=== PATIENT | female | born 1975 | race African-American/Black ===

== ENCOUNTER → 2020-03-14 | Outpatient (CLI) | payer BC, OTHER | LOC: MRI 03-12 10:13 | PROVIDERS: ATTEND Family Medicine | DX: S83.241A Other tear of medial meniscus, current injury, right knee, initial encounter (principal); R60.0 Localized edema; M25.461 Effusion, right knee; X58.XXXA Exposure to other specified factors, initial encounter; Y93.89 Activity, other specified; Y92.89 Other specified places as the place of occurrence of the external cause; Y99.8 Other external cause status ==

== ENCOUNTER → 2020-08-10 | Outpatient (CLI) | payer BC, OTHER | LOC: MRI 10:01 | PROVIDERS: ATTEND Family Medicine | DX: M51.17 Intervertebral disc disorders with radiculopathy, lumbosacral region (principal); M47.26 Other spondylosis with radiculopathy, lumbar region ==

== ENCOUNTER → 2020-09-17 | Outpatient (CLI) | payer BC, OTHER ==
[~2020-09-17] VITALS: Ht 180.3 cm; Wt 68.0 kg
[~2020-09-17] MED LIST: BREO ELLIPTA 11 EACH INH; CYMBALTA30 MG PO; FLEXERIL PO; HYDROCODON-ACE1 EAC8 PO; IBUPROFEN 800800 M1 PO; VENTOLIN HFA 1818 GM INH
[2020-09-17 12:45] VITALS: BP 127/76
--- NOTE | 2020-09-17 12:46 | NUR ---
Pain Clinic Assessment: 1. History of Osteoarthritis: SACRUM History of Rheumatoid Arthritis: Not Applicable 2. Height: 5 ft. 11 in. 180.3 cm. Weight: 150.0 lb. oz. 68.040 kg. Patient's BMI: 20.9 3. Vital Signs: BP: 127/76 Pulse: 79 Resp: 16 Temp: 02 Sat: 100 ECG Mon: 4. Pain Intensity: 9 5. Fall Risk: Dizziness: Needs help standing or walking: Fallen in the last 3 months: Fall risk comments: 6. Patient on Blood Thinner: None 7. History of Hypertension: N 8. Opioid Therapy greater than 6 weeks: Y Opiate Contract Signed: 9. Risk Assessment Tool Provided: low-1 10. Functional Assessment Tool: 11. Recreational Drug Use: Never Drug Type: Tobacco Use: Never Smoker Tobacco Type: Amount or Packs/day: How Many Years: Alcohol Use: No Frequency: Quant:
== END | disposition home or self-care (01) ==
LOC: PAIN 09-13 06:55
PROVIDERS: ATTEND Anesthesiology Pain Medicine
DX: M51.26 Other intervertebral disc displacement, lumbar region (principal); G89.29 Other chronic pain; J45.909 Unspecified asthma, uncomplicated; M19.90 Unspecified osteoarthritis, unspecified site; G47.30 Sleep apnea, unspecified; Z98.890 Other specified postprocedural states; Z79.899 Other long term (current) drug therapy; Z88.8 Allergy status to other drugs, medicaments and biological substances

== ENCOUNTER → 2020-10-10 | Outpatient (CLI) | payer BC, OTHER ==
[~2020-10-10] VITALS: Ht 180.3 cm; Wt 72.8 kg
[~2020-10-10] MED LIST changes: +LYRICA 50 MG50 MG PO; +MEDROLDOSEPACK PO
[2020-10-10 08:58] VITALS: BP 117/75
--- NOTE | 2020-10-10 09:06 | NUR ---
Pain Clinic Assessment: 1. History of Osteoarthritis: SACRUM History of Rheumatoid Arthritis: Not Applicable 2. Height: 5 ft. 11 in. 180.3 cm. Weight: 160.6 lb. oz. 72.848 kg. Patient's BMI: 22.4 3. Vital Signs: BP: 117/75 Pulse: 78 Resp: 16 Temp: 02 Sat: 100 ECG Mon: 4. Pain Intensity: 9 5. Fall Risk: Dizziness: N Needs help standing or walking: N Fallen in the last 3 months: N Fall risk comments: 6. Patient on Blood Thinner: None 7. History of Hypertension: N 8. Opioid Therapy greater than 6 weeks: Y Opiate Contract Signed: 9. Risk Assessment Tool Provided: low-1 10. Functional Assessment Tool: 11. Recreational Drug Use: Never Drug Type: Tobacco Use: Never Smoker Tobacco Type: Amount or Packs/day: How Many Years: Alcohol Use: No Frequency: Quant:
== END ==
LOC: PAIN 06:49
PROVIDERS: ATTEND Anesthesiology Pain Medicine
DX: M51.37 Other intervertebral disc degeneration, lumbosacral region (principal); J45.909 Unspecified asthma, uncomplicated; G47.30 Sleep apnea, unspecified; G89.4 Chronic pain syndrome

== ENCOUNTER → 2020-11-16 | Outpatient (CLI) | payer BC, OTHER ==
[~2020-11-16] VITALS: Ht 180.3 cm; Wt 77.2 kg
[~2020-11-16] MED LIST changes: +ARMODAFINIL250 MG PO; +BACLOFEN20 MG PO; +PERCOCET 5-3251 EACH PO; +PROMETHAZINE-D473 M1 PO
[2020-11-16 08:05] VITALS: BP 114/73
--- NOTE | 2020-11-16 08:22 | NUR ---
Pain Clinic Assessment: 1. History of Osteoarthritis: SACRUM History of Rheumatoid Arthritis: Not Applicable 2. Height: 5 ft. 11 in. 180.3 cm. Weight: 170.2 lb. oz. 77.202 kg. Patient's BMI: 23.7 3. Vital Signs: BP: 114/73 Pulse: 99 Resp: 14 Temp: 02 Sat: 100 ECG Mon: 4. Pain Intensity: 9 5. Fall Risk: Dizziness: N Needs help standing or walking: N Fallen in the last 3 months: N Fall risk comments: 6. Patient on Blood Thinner: None 7. History of Hypertension: N 8. Opioid Therapy greater than 6 weeks: Y Opiate Contract Signed: 9. Risk Assessment Tool Provided: low-1 10. Functional Assessment Tool: 11. Recreational Drug Use: Never Drug Type: Tobacco Use: Never Smoker Tobacco Type: Amount or Packs/day: How Many Years: Alcohol Use: Yes Frequency: Special Occasions Quant: 1
== END | disposition home or self-care (01) ==
LOC: PAIN 10-24 06:49
PROVIDERS: ATTEND Anesthesiology Pain Medicine
DX: M51.26 Other intervertebral disc displacement, lumbar region (principal); G89.29 Other chronic pain; J45.909 Unspecified asthma, uncomplicated; M19.90 Unspecified osteoarthritis, unspecified site; Z98.890 Other specified postprocedural states; Z79.899 Other long term (current) drug therapy; Z88.8 Allergy status to other drugs, medicaments and biological substances

== ENCOUNTER → 2020-11-16 | Outpatient (CLI) | payer BC, OTHER ==
[~2020-11-16] MED LIST changes: -PERCOCET 5-3251 EACH PO
== END ==
LOC: LAB 12:00
PROVIDERS: ATTEND Orthopaedic Surgery
DX: Z01.812 Encounter for preprocedural laboratory examination (principal); Z20.822 Contact with and (suspected) exposure to COVID-19

== ENCOUNTER 2020-11-21 10:21 | Day surgery (SDC) | payer BC, OTHER ==
[~2020-11-21] VITALS: Ht 180.3 cm; Wt 74.8 kg
[2020-11-21 11:15] VITALS: BP 133/82
[2020-11-21] MEDS ORDERED: PERCOCET 5-3251 EACH PO (13:09)
[2020-11-21 13:47] VITALS: BP 133/82
--- NOTE | 2020-11-22 14:01 | O ---
[facility] [address] OPERATIVE REPORT Name: KIMI MAYER Room #: DEP [facility] [place] M..#: [id number] Admission: 11/21/20 Attend Phys: Armando Edmond MD Discharge: 11/21/20 Date of : 75 Report #: [id number] THIS REPORT FOR: cc: Victor Manuel Miller James A. DO Abraham, Scott M. MD ~ DATE OF SERVICE: 11/21/2020 PREOPERATIVE DIAGNOSIS: Recurrent tear, medial meniscus, right knee. POSTOPERATIVE DIAGNOSIS: Recurrent tear, medial meniscus, right knee. PROCEDURE: Right knee arthroscopy with partial medial meniscectomy. SURGEON: Armando Edmond MD EAR MACHINE OPERATOR: Adelaide Turner PA-C ANESTHESIA: LMA. TOURNIQUET TIME: 18 minutes. COMPLICATIONS: None. SPECIMENS: None. CONDITION UPON LEAVING THE OPERATING ROOM: Stable. INDICATIONS FOR PROCEDURE: The patient is a 45-year-old female who had a right knee scope and a partial medial meniscectomy this past summer. She has gone on to have continued knee pain in her knee and has failed physical therapy and other conservative measures. She had a repeat MRI scan that showed a recurrent tear of the medial meniscus, primarily horizontal component of the posterior horn and after discussion with her, she elected for right knee arthroscopy with partial medial meniscectomy and debridement as needed. DESCRIPTION OF PROCEDURE: Risks, benefits, alternatives, and complications were discussed in detail with the patient including but not limited to risk of anesthesia, risk of damage to nerves, arteries, blood vessels, risk for infection, bleeding, risk for continued knee pain, need for reoperation. Informed consent was obtained from the patient. Right knee was appropriately marked in the preoperative holding area. IV Ancef was given for preoperative antibiotics. She was brought to the operating room and placed in supine position on operating room table. LMA anesthesia was induced without complication. Tourniquet was placed on the right thigh. Right lower extremity [address] [address] OPERATIVE REPORT Name: KIMI MAYER Room #: DEP [facility] [place] Miriam#: [id number] Admission: 11/21/20 Attend Phys: Armando Edmond MD Discharge: 11/21/20 Date of : 75 Report #: [id number] was prepped and draped in normal sterile fashion. Timeout was performed properly identifying the patient and procedure as well as instrumentation. All in the operating room were in agreement. Right lower extremity was exsanguinated, tourniquet was inflated. Tourniquet time was 18 minutes. Standard anterolateral portal was established with 11 blade through the skin. Arthroscope was introduced into the patellofemoral compartment, diagnostic arthroscopy was undertaken. Patellofemoral compartment was visualized and found to be without pathology. Medial gutter was visualized and found to be without pathology. Medial compartment was visualized and medial portal was established under arthroscopic visualization. Probe was introduced into the medial compartment. There was noted to be a horizontal type tear of the posterior horn of the medial meniscus from the body extending into the posterior horn. This was then trimmed back to a stable rim with arthroscopic biter and smoothed back with arthroscopic shaver. Notch was visualized and found to have an intact anterior cruciate ligament. Lateral compartment was visualized and found to have an intact lateral meniscus. Lateral gutter was visualized and found to be without pathology. After the scope was placed back in the patellofemoral compartment and all fluid was allowed to drain from the knee. Knee was injected with 10 mL of 0.5% Marcaine. Incision was closed with 3-0 nylon. Soft dressing of Adaptic, 4 x 4, Webril, Tony wrap were applied. The patient tolerated this procedure well and went to recovery room under care of anesthesia postoperatively. <ELECTRONICALLY SIGNED> By: Armadno Edmond MD 11/22/20 1401 1321 [id number] Armando Edmond MD /nt
== END 2020-11-21 14:45 | disposition home or self-care (01) ==
LOC: OR 10:21 → TBA 10:22 → OR 13:12
PROVIDERS: ATTEND Orthopaedic Surgery
DX: S83.241A Other tear of medial meniscus, current injury, right knee, initial encounter (principal); M25.561 Pain in right knee; J45.909 Unspecified asthma, uncomplicated; M19.90 Unspecified osteoarthritis, unspecified site; Z98.890 Other specified postprocedural states; Z79.899 Other long term (current) drug therapy; Z90.711 Acquired absence of uterus with remaining cervical stump; Z88.8 Allergy status to other drugs, medicaments and biological substances; X58.XXXA Exposure to other specified factors, initial encounter; Y93.89 Activity, other specified; Y92.89 Other specified places as the place of occurrence of the external cause; Y99.8 Other external cause status
CPT/HCPCS: 50010; 50101; 50405; 56526; 57103; 57180; 62110; 62900; 70005

== ENCOUNTER → 2021-02-13 | Outpatient (CLI) | payer BC, OTHER ==
[~2021-02-13] VITALS: Ht 180.3 cm; Wt 84.5 kg
[~2021-02-13] MED LIST changes: +AMITRIPTYLINE H10 M1 PO; +EPIPEN0.3 MG/0.1 IM; +HYDROCODONE-AP1 EA11 PO; +LORAZEPAM 1 MG T1 MG PO; +MONTELUKAST PO; +NEURONTIN100 MG PO; +PERCOCET 5-3251 EACH PO; +TIZANIDINE HCL 22 M1 PO
[2021-02-13 09:09] VITALS: BP 117/71
--- NOTE | 2021-02-13 09:35 | NUR ---
Pain Clinic Assessment: 1. History of Osteoarthritis: SACRUM History of Rheumatoid Arthritis: Not Applicable 2. Height: 5 ft. 11 in. 180.3 cm. Weight: 186.2 lb. oz. 84.460 kg. Patient's BMI: 26.0 3. Vital Signs: BP: 117/71 Pulse: 110 Resp: 16 Temp: 02 Sat: 100 ECG Mon: 4. Pain Intensity: 10 WITH ACTIVITY 5. Fall Risk: Dizziness: N Needs help standing or walking: N Fallen in the last 3 months: Y Fall risk comments: 6. Patient on Blood Thinner: None 7. History of Hypertension: N 8. Opioid Therapy greater than 6 weeks: Y Opiate Contract Signed: 9. Risk Assessment Tool Provided: low-1 10. Functional Assessment Tool: 11. Recreational Drug Use: Never Drug Type: Tobacco Use: Never Smoker Tobacco Type: Amount or Packs/day: How Many Years: Alcohol Use: Yes Frequency: Quant:
== END ==
LOC: PAIN 08:54
PROVIDERS: ATTEND Anesthesiology Pain Medicine
DX: M51.26 Other intervertebral disc displacement, lumbar region (principal); J45.909 Unspecified asthma, uncomplicated; G47.30 Sleep apnea, unspecified; Z79.899 Other long term (current) drug therapy; Z79.891 Long term (current) use of opiate analgesic

== ENCOUNTER → 2021-04-03 | Outpatient (CLI) | payer BC, OTHER | LOC: ULTRA 10:13 | PROVIDERS: ATTEND Family Medicine | DX: E04.2 Nontoxic multinodular goiter (principal) ==

== ENCOUNTER → 2021-04-24 | Outpatient (CLI) | payer BC, OTHER ==
[~2021-04-24] VITALS: Ht 180.3 cm; Wt 88.7 kg
[~2021-04-24] MED LIST changes: +BIAXIN 500 MG500 M2 PO; +LYRICA 75 MG CA75 MG PO
[2021-04-24 08:10] VITALS: BP 119/78
--- NOTE | 2021-04-24 08:31 | NUR ---
Pain Clinic Assessment: 1. History of Osteoarthritis: SACRUM History of Rheumatoid Arthritis: Not Applicable 2. Height: 5 ft. 11 in. 180.3 cm. Weight: 195.6 lb. oz. 88.724 kg. Patient's BMI: 27.3 3. Vital Signs: BP: 119/78 Pulse: 93 Resp: 14 Temp: 02 Sat: 100 ECG Mon: 4. Pain Intensity: 5 5. Fall Risk: Dizziness: N Needs help standing or walking: N Fallen in the last 3 months: Y Fall risk comments: 6. Patient on Blood Thinner: None 7. History of Hypertension: N 8. Opioid Therapy greater than 6 weeks: Y Opiate Contract Signed: 9. Risk Assessment Tool Provided: low-1 10. Functional Assessment Tool: 11. Recreational Drug Use: Never Drug Type: Tobacco Use: Never Smoker Tobacco Type: Amount or Packs/day: How Many Years: Alcohol Use: Yes Frequency: Quant:
--- NOTE | 2021-04-25 08:18 | HPC ---
[facility] [place] [address] PAIN MANAGEMENT CONSULTATION Name: KIMI MAYER [id number] Admission: 04/24/21 Attend Phys: Yesenia Alves Discharge: Date of : 75 Report #: [id number] THIS REPORT FOR: cc: Victor Manuel Miller James A. DO Hocker, Amanda CNS ~ cc: Victor Manuel Miller DO, N Wayne Brown, MD DATE OF SERVICE: 04/24/2021 CHIEF COMPLAINT: Right knee pain, sacral pain, and right ankle pain. HISTORY OF PRESENT ILLNESS: This is a 45-year-old female who returns to the pain clinic today for discussion on her medications. Since she was last here, she has developed bronchial laryngeal sensitivity and has been having issues with a cough and spasms. She reports going to the Emergency Room several times for this. Now been started on Lyrica taking 75 mg tablets three times a day and has found this beneficial in helping decrease her spasms as well as some of her other pain that we have been treating her for in her lower back. The patient had been on gabapentin in the past, but was having significant swelling in her joints and lower extremities as a side effect of that medication. Currently, she reports not having that issue with her Lyrica. The patient states that her pain today is a 5/10, mostly located in her sacrum and low back. Though she is also having ongoing right knee and ankle pain from various injuries as well that she is seeing an orthopedic for. She describes her pain as a constant, shooting, aching, throbbing sensation that is worse with walking, standing, and sitting. She believes her current regimen of medication, taking hydrocodone 1 tablet a day, Lyrica 75 mg 3 times a day, and tizanidine 4 mg at bedtime, have been beneficial. She currently reports not working due to trying to have time to see her doctors for her many ailments that she has currently going on with her. The patient also reports that she is now only taking Cymbalta 30 mg at bedtime. This helps with her depression as well as some of her neuropathy issues of pain and not taking amitriptyline. She reports her primary care doctor has been writing her duloxetine and tizanidine, so she is only needing hydrocodone filled from us today. ALLERGIES: DEMEROL. CURRENT LIST OF MEDICATIONS: Biaxin, Lyrica, tizanidine, hydrocodone, Cymbalta, Singulair, lorazepam, armodafinil, promethazine, Breo and Ventolin inhaler. PQRS: 1. She has osteoarthritis in her knees as well as her back. Denies any rheumatoid arthritis. Height is 5 feet 11 inches, weight is 195, BMI is 27. [place] [address] PAIN MANAGEMENT CONSULTATION Name: KIMI MAYER Room #: REG [facility].#: [id number] Admission: 04/24/21 Attend Phys: Yesenia Alves Discharge: Date of : 75 Report #: [id number] 2. Vital signs: Blood pressure 119/78, pulse is 93, respirations 14, oxygen sat is 100%. 3. Pain score is 5/10. 4. Denies dizziness, does not need help walking, has fallen in the past. 5. She is not on any blood thinners or medication for hypertension. 6. Opioid therapy is greater than six weeks. There is an opioid signed contract on the chart. Risk assessment is low. Functional assessment is 38/70. 7. Recreational drug use, she denies. She is not a smoker and occasionally drinks alcohol. According to the prescription monitoring system, the patient has filled promethazine with codeine several times since our last visit, diazepam and hydrocodone. All these medications were from her ENT helping treat her laryngeal spasms. We discussed that all of these are opioids or centrally acting medications. She has signed an opioid agreement with our clinic and she needs to notify us if she takes any medications in the future from another physician. She is scheduled for a possible knee surgery and I encouraged her to call us if she did provide opioids. The patient averages 1 hydrocodone 7.5 mg a day. Therefore, her MME is less than 10 daily. PHYSICAL EXAMINATION: GENERAL: This is alert and orientated, pleasant, well-nourished, well-hydrated, black 45-year-old female. She is alert and orientated. She is a good historian. She appears her stated age. HEENT: Normocephalic, atraumatic. Extraocular eye muscles are intact. She is wearing a mask. NECK: Without adenopathy or JVD. MUSCULOSKELETAL: She is without significant scoliosis, kyphosis, or lordosis. She has tenderness in the lumbosacral region radiating into her buttocks. Tenderness in her right knee. Wearing a brace today. No edema noted. Tenderness in her right ankle as well with a brace and shoe on. She has a slightly antalgic gait due to these injuries. Upper and lower extremity muscle strength is symmetrical at 5/5. Tenderness in the lumbar spine also follows the L5-S1 dermatomal distribution. IMPRESSION: 1. Severe bilateral facet arthrosis. 2. Lumbar radiculopathy. 3. Narcolepsy. 4. Laryngeal spasms. 5. Asthma. 6. Right knee arthrosis. 7. Complex medical management utilizing scheduled opioids under written agreement. PLAN: [facility] [address] [place] [address] PAIN MANAGEMENT CONSULTATION Name: KELLEE MAYERANDA AMANDA Room #: REG [facility].#: [id number] Admission: 04/24/21 Attend Phys: Yesenia Alves Discharge: Date of : 75 Report #: [id number] 1. We discussed treatment options with the patient today. The patient reports obtaining her Cymbalta 30 mg and her tizanidine 4 mg tablets from her primary care physician. I encouraged her to continue these doses and we will have them provide these medications. The patient found that 2 mg tablets were ineffective in helping her with her muscle spasms and pain in her lower back; therefore, her primary care increased her to 4 mg, but she is unable to take this medication during the day due to somnolence. She does find that tizanidine is beneficial and we will have her continue this medication. 2. We did discuss many ofthe adjunct medications she is taking that help in various ways with depression, nerve pain as well as muscle spasm relief and I encouraged her to continue medications from her various physicians. 3. She is currently taking Lyrica 75 mg tablets three times a day from her ear, nose and throat physician. If he does decide to wean her off these medications, we will continue prescribing them if her pain returns after she is weaned down due to the fact that they will help some of her neuropathy . 4. Today, we will continue her on hydrocodone 7.5/325, #90. Scripts will be sent electronically by Dr. Bradford. This will last the patient two to three months depending on usage. She is instructed to call for an appointment when she is running low. She is also reminded that she is only to fill opioids from one provider. If she does have surgery on her knee, she is to call our office of what they prescribed, so we may document those medications. 5. The patient will follow up as needed. Time spent with the patient in consultation, reviewing pertinent imaging, recent studies and clinical notes and consultation reports, physical examination and correlation of findings to determine pain generators and possible treatment options, 20 minutes. Time spent in preparation for appointment, reviewing prescription monitoring reports, reviewing previous records and proposed treatment options and current medications, 8 minutes. Time spent preparing and sending electronic prescriptions with collaborating physician, Dr. Cornelio Bradford, documentation of visit and plan of treatment, 5 minutes. Total time spent 33 minutes. <ELECTRONICALLY SIGNED> By: Yesenia Alves 04/25/21 0818 0 Yesenia Alves /arsenio
== END ==
LOC: PAIN
PROVIDERS: ATTEND Clinical Nurse Specialist Adult Health
DX: M47.26 Other spondylosis with radiculopathy, lumbar region (principal); G47.419 Narcolepsy without cataplexy; J38.5 Laryngeal spasm; J45.909 Unspecified asthma, uncomplicated; M17.11 Unilateral primary osteoarthritis, right knee; Z68.27 Body mass index [BMI] 27.0-27.9, adult; Z88.8 Allergy status to other drugs, medicaments and biological substances; Z79.891 Long term (current) use of opiate analgesic; Z79.899 Other long term (current) drug therapy

== ENCOUNTER → 2021-05-29 | Outpatient (CLI) | payer BC, OTHER ==
[~2021-05-29] VITALS: Ht 152.4 cm; Wt 86.7 kg
[~2021-05-29] MED LIST changes: +ZANAFLEX4 M2 PO
[2021-05-29 08:22] VITALS: BP 128/77
--- NOTE | 2021-05-29 08:38 | NUR ---
Pain Clinic Assessment: 1. History of Osteoarthritis: SACRUM History of Rheumatoid Arthritis: Not Applicable 2. Height: 5 ft. 11 in. 152.4 cm. Weight: 191.2 lb. oz. 86.728 kg. Patient's BMI: 37.3 3. Vital Signs: BP: 128/77 Pulse: 96 Resp: 14 Temp: 02 Sat: 100 ECG Mon: 4. Pain Intensity: 9 5. Fall Risk: Dizziness: N Needs help standing or walking: N Fallen in the last 3 months: Y Fall risk comments: 6. Patient on Blood Thinner: None 7. History of Hypertension: N 8. Opioid Therapy greater than 6 weeks: Y Opiate Contract Signed: 9. Risk Assessment Tool Provided: low-1 10. Functional Assessment Tool: 11. Recreational Drug Use: Never Drug Type: Tobacco Use: Never Smoker Tobacco Type: Amount or Packs/day: How Many Years: Alcohol Use: Yes Frequency: Monthly Quant: 1
== END ==
LOC: PAIN 06:52
PROVIDERS: ATTEND Anesthesiology Pain Medicine
DX: G89.29 Other chronic pain (principal); J45.909 Unspecified asthma, uncomplicated; M47.816 Spondylosis without myelopathy or radiculopathy, lumbar region; M48.061 Spinal stenosis, lumbar region without neurogenic claudication; M48.07 Spinal stenosis, lumbosacral region; G47.00 Insomnia, unspecified; G47.419 Narcolepsy without cataplexy; N81.84 Pelvic muscle wasting; Z79.899 Other long term (current) drug therapy; Z88.8 Allergy status to other drugs, medicaments and biological substances

== ENCOUNTER → 2021-06-04 | Outpatient (CLI) | payer BC, OTHER ==
[~2021-06-04] VITALS: Ht 180.3 cm; Wt 85.7 kg
[2021-06-04 09:18] VITALS: BP 142/86
--- NOTE | 2021-06-04 09:21 | NUR ---
Pain Clinic Assessment: 1. History of Osteoarthritis: SACRUM History of Rheumatoid Arthritis: Not Applicable 2. Height: 5 ft. 11 in. 180.3 cm. Weight: 189.0 lb. oz. 85.730 kg. Patient's BMI: 26.4 3. Vital Signs: BP: 142/86 Pulse: 83 Resp: 16 Temp: 02 Sat: 98 ECG Mon: 4. Pain Intensity: 9 5. Fall Risk: Dizziness: N Needs help standing or walking: N Fallen in the last 3 months: N Fall risk comments: 6. Patient on Blood Thinner: None 7. History of Hypertension: N 8. Opioid Therapy greater than 6 weeks: Y Opiate Contract Signed: 9. Risk Assessment Tool Provided: low-1 10. Functional Assessment Tool: 11. Recreational Drug Use: Never Drug Type: Tobacco Use: Never Smoker Tobacco Type: Amount or Packs/day: How Many Years: Alcohol Use: Yes Frequency: Quant:
--- NOTE | 2021-06-05 08:23 | HPC ---
[facility] [place] [address] PAIN MANAGEMENT CONSULTATION Name: KIMI MAYER Room #: REG [facility]#: [id number] Admission: 06/04/21 Attend Phys: Victor Manuel Edgar DO Discharge: Date of : 75 Report #: [id number] THIS REPORT FOR: cc: Victor Manuel Miller James A. DO Johnson, James E. DO ~ cc: Victor Manuel Miller DO, N Wayne Brown, MD DATE OF SERVICE: 06/04/2021 REFERRING PHYSICIAN: Dr. Victor Manuel Miller CHIEF COMPLAINT: Axial back pain. HISTORY OF PRESENT ILLNESS: As you know, the patient is a very pleasant 46-year-old female who has been referred to my service to discuss interventional treatment options to address axial back pain. The patient has been evaluated by my partner, Dr. Cornelio Bradford and the patient has been given the diagnosis of bilateral facet arthrosis and subsequent axial back pain. They have tried conservative treatment, which has been ineffective. They had discussed at the last visit that the patient might be a candidate for medial branch nerve blocks and radiofrequency lesioning. The patient was established today's appointment to discuss that with me today. The patient reports that her pain exacerbates with activity. She believes that her symptoms may have been exacerbated after a fall down the stairs. She does have a history of pelvic floor syndrome for which she is receiving treatment. She has undergone lumbar epidural injections under fluoroscopic guidance, which apparently provided minimal benefit. These were done in 08/2020 and repeated in 10/2020. She has been continued on medication management since that time. She is taking tizanidine, but states the medication is effective to some degree, but needs to somnolence that she cannot tolerate. She has been referred to my clinic to discuss interventional treatment options to address axial back pain. She is placing pain today at 9/10. ALLERGIES: DEMEROL. CURRENT MEDICATIONS: Hydrocodone 7.5/325 three times a day, duloxetine 30 mg once a day, tizanidine 4 mg b.i.d., Lyrica 75 mg b.i.d., montelukast sodium 10 mg per day, lorazepam 1 mg per day, armodafinil 250 mg once a day, promethazine/dextromethorphan 5 mL p.r.n., Breo Ellipta 100/25 mg once a day, albuterol 2 puffs q. 4 hours p.r.n. SOCIAL HISTORY: The patient denies tobacco use. Denies IV or illicit drug use. She reports she is working, not receiving workmen's compensation nor is she in litigation in regards to pain. She is unaccompanied at today's visit. IMAGING: MRI dated 08/10/2020 of the lumbar spine shows L1-L2, L2-L3, L3-L4 [address] [address] PAIN MANAGEMENT CONSULTATION Name: KIMI MAYER Room #: REG HERMINIA Pineda#: [id number] Admission: 06/04/21 Attend Phys: Victor Manuel Edgar DO Discharge: Date of : 75 Report #: [id number] essentially unremarkable, L4-L5 shows minimal posterior disc bulge, severe bilateral facet arthrosis. L5-S1 broad-based posterior disk bulge, right paracentral disk protrusion abutting and mildly displacing the descending right S1 nerve root. There is moderate to severe central canal stenosis. Sacroiliac joints are intact and unremarkable. PHYSICAL EXAMINATION: VITAL SIGNS: Blood pressure 142/86, pulse is 83, respiratory rate 16 and unlabored. The patient 98% on room air. Height 5 feet 11 inches tall, weight 189 pounds, BMI calculated 26.4. GENERAL: Well-developed, well-nourished, well-hydrated 46-year-old female appearing stated age, pain is rated around 9/10. HEENT: Normocephalic, atraumatic. Pupils equal, round and responsive to light. Speech is fluent. She is wearing a mask in compliance with COVID-19 regulations. EXTREMITIES: Show no clubbing, no cyanosis, no edema. MUSCULOSKELETAL: Lower extremity strength equal and symmetrical 5/5. She is intact to light touch from L1 through S2 dermatomes. She is wearing a brace on the right knee. Muscle bulk and tone is equal and symmetrical in lower extremities. Seated straight leg raising negative. Supine straight leg raising negative. Fabere's test is negative. Modified Gaenslen's positive for axial back pain. Lumbar provocation testing is met with increasing axial back pain over the facet joints at L4-L5 and L5-S1, right greater than left. Lumbar provocation testing extension and rotation as well as lateral flexion to the right intensifies pain, mildly to the left. Forward flexion of lumbar spine improves her pain slightly. ASSESSMENT: 1. Symptomatic lumbosacral spondylosis without radiculopathy. 2. Severe facet arthrosis, lumbar spine. 3. Chronic axial back pain. PLAN: 1. Based on today's physical exam, the history the patient has provided, the description the patient uses in regard to pain as well as location of symptoms, it would appear she is suffering from facet arthropathy of the lumbar spine located over the L4-L5 and L5-S1 levels. This is consistent with the findings of her MRI from 07/2020. The patient and I discussed today the treatment options to address facet arthropathy symptoms. The following was discussed with the patient today: 1. We discussed physical therapy, stretching exercises and core strengthening as an approach to treatment. We discussed medication management with the use of nonsteroidal anti-inflammatories in a judicious manner as the patient does have only one functioning kidney. 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 We have to be very careful with nonsteroidal anti-inflammatories if we use these [address] [address] PAIN MANAGEMENT CONSULTATION Name: KIMI MAYER Room #: REG HERMINIA Pineda#: [id number] Admission: 06/04/21 Attend Phys: Victor Manuel Edgar DO Discharge: Date of : 75 Report #: [id number] medications. We discussed intraarticular facet injections for diagnostic purposes. We also discussed medial branch nerve blocks with progression towards radiofrequency lesioning if appropriate. We also discussed surgical options with the patient. After reviewing risks and benefits of all proposed treatment options, the patient chose to begin with medial branch nerve blocks to address axial back pain. 2. The patient will establish an appointment tomorrow to undergo bilateral L3, L4, L5 medial branch nerve blocks. If these are then successful at alleviating symptoms for greater than 70% improvement for at least a couple of hours, we would then move forward with a second in the series of blocks. If these then were also very successful in alleviating symptoms up to 70% overall, then she would be a candidate for radiofrequency lesioning medial branch nerves of the lumbar spine. The patient is agreeable with this plan. She will make to my office appointment to undergo bilateral L3, L4, L5 medial branch nerve blocks under fluoroscopic guidance. 3. No medication changes made at today's visit. The patient will continue current medical therapy as prior prescribed. 4. We will see the patient back in followup visit tomorrow to undergo L3, L4, L5 bilateral medial branch nerve blocks under fluoroscopic guidance. <ELECTRONICALLY SIGNED> By: Victor Manuel Edgar DO 06/05/21 0823 1523 2059 Victor Manuel Edgar DO /nt
== END ==
LOC: PAIN 08:27
PROVIDERS: ATTEND Anesthesiology Pain Medicine
DX: M47.817 Spondylosis without myelopathy or radiculopathy, lumbosacral region (principal); M46.96 Unspecified inflammatory spondylopathy, lumbar region; M54.6 Pain in thoracic spine; Z79.899 Other long term (current) drug therapy; Z88.8 Allergy status to other drugs, medicaments and biological substances

== ENCOUNTER → 2021-06-05 | Outpatient (CLI) | payer BC, OTHER ==
[~2021-06-05] VITALS: Ht 180.3 cm; Wt 85.7 kg
--- NOTE | ~2021-06-05 | HPC ---
[facility] [place] [address] PAIN MANAGEMENT CONSULTATION Name: KIMI MAYER Room #: REG HERMINIA De La Cruz.#: [id number] Admission: 06/05/21 Attend Phys: Victor Manuel Edgar DO Discharge: Date of : 75 Report #: [id number] THIS REPORT FOR: cc: Victor Manuel Miller James A. DO Johnson, James E. DO ~ cc: Victor Manuel Miller DO, N Wayne Brown, MD DATE OF SERVICE: 06/05/2021 DATE OF SERVICE: 06/05/2021. CHIEF COMPLAINT: Axial back pain. HISTORY OF PRESENT ILLNESS: As you know, the patient is a very pleasant 46-year-old female referred to my service to discuss interventional treatment options to address facet arthropathy of the lumbar spine. The patient was referred after undergoing treatment for chronic axial back pain without significant pain improvement. It was noted that she had fairly significant arthritic changes of lumbar spine and referred on to my clinic to discuss a possible medial branch nerve blocks and radiofrequency lesioning. She was seen in consultation 06/04/2021 diagnosed with facet arthropathy, lumbar spine and obtained today's appointment to undergo medial branch nerve blocks with plans to move forward towards radiofrequency lesioning assuming improvement in symptoms. She returns today in followup visit for the first in the series of medial branch nerve blocks. ALLERGIES: DEMEROL. CURRENT MEDICATIONS: See chart. SOCIAL HISTORY: The patient denies tobacco use. Denies IV or illicit drug use. Denies chronic alcohol use. She is accompanied by family member present in room today. IMAGING: No new imaging available. PHYSICAL EXAMINATION: VITAL SIGNS: Blood pressure 142/79, pulse 89, respiratory rate 14 and unlabored. The patient 100% on room air. Height 5 feet 11 inches tall, weight 189 pounds, BMI calculated 26.4. GENERAL: Well-developed, well-nourished, well-hydrated 46-year-old female appearing her stated age. She is in no acute distress. Awake, alert and oriented x3. Pain is rated today at a 9/10. HEENT: Normocephalic, atraumatic. EXTREMITIES: Show no clubbing, no cyanosis, no edema. MUSCULOSKELETAL: Lower extremity strength equal and symmetrical 5/[address] [address] PAIN MANAGEMENT CONSULTATION Name: KIMI MAYER Room #: REG [facility].#: [id number] Admission: 06/05/21 Attend Phys: Victor Manuel Edgar DO Discharge: Date of : 75 Report #: [id number] light touch from L1 through S2 dermatomes. She is wearing a brace on the right knee. She also has bracing of the right ankle. Lumbar provocation testing including extension, rotation, lateral flexion all intensify axial back pain over the facet joints. Seated straight leg raising negative. Supine straight leg raising negative. ASSESSMENT: 1. Symptomatic lumbosacral spondylosis without radiculopathy. 2. Severe facet arthrosis, lumbar spine. 3. Chronic intractable pain. PLAN: 1. The patient has returned today in followup visit to undergo medial branch nerve blocks in hopes of improving her ongoing pain. Plan is to potentially move forward with a radiofrequency lesioning assuming she tolerates the injections well and sees good analgesic benefit. She has been advised risks and benefits of medial branch nerve blocks and has agreed to proceed. 2. No medication changes made at today's visit. The patient will continue current medical therapy as prior prescribed. 3. We will plan to see the patient back in followup visit in 2 weeks. At that time, review the efficacy of today's medial branch nerve blocks. If again the patient notes about 70-80% improvement in overall pain, we will move forward with a second in the series at our next visit. PROCEDURE NOTE DESCRIPTION OF PROCEDURE: Bilateral L3, L4, L5 medial branch nerve blocks under fluoroscopic guidance. This is the first of 2 diagnostic medial branch blocks on the right and left side that the patient is undergoing. After obtaining written consent, the patient was taken back to the fluoroscopy suite and placed in a prone position on the fluoroscopy table with a pillow under the abdomen to decrease the lumbar lordosis. The skin overlying the lumbosacral area was prepped and draped in an aseptic fashion. The L4 transverse process corresponding to the L3 medial branch nerve and L5 transverse process corresponding to the L4 medial branch nerve on the right and left sides were visualized under AP fluoroscopy. The skin and subcutaneous tissue overlying the target sites of injection right and left sides were anesthetized using 2 mL of 1% lidocaine. A 22-gauge 3-1/2 inch spinal needle with a bent tip was advanced under fluoroscopic guidance using a superior to inferior and lateral to medial approach to the dorsal, superior and medial aspect of the base of the transverse processes. The needles were then directed ventral, medial and caudad to reach the target locations. An oblique view facilitated needle placement with properly positioned needles in the middle of the "eye" of the [facility] [address] [place] [address] PAIN MANAGEMENT CONSULTATION Name: KIMI MAYER [id number] Admission: 06/05/21 Attend Phys: Victor Manuel Edgar DO Discharge: Date of : 75 Report #: [id number] Jhon dog for the medial branch blocks. At each site the needles rested on periosteum. After negative aspiration for heme or CSF, 0.0 mL of Omnipaque dye was injected at each site under live fluoroscopy, demonstrating absence of vascular uptake. After negative aspiration for heme or CSF, 0.5 mL of bupivacaine 0.5% was slowly injected at each site to avoid forcing the solution away from the target points(s). The needle(s) were then removed. The L5 dorsal ramus block on the right and left sides were performed using a slightly oblique approach under fluoroscopic guidance, placing the needle within the groove between the sacral site and the superior articular process of S1. The needle rested on periosteum. After negative aspiration for heme or CSF, 0.0 mL of Omnipaque dye was injected at under live fluoroscopy, demonstrating absence of vascular uptake. After negative aspiration for heme or CSF, 0.5 mL of bupivacaine 0.5% was slowly injected to avoid forcing the solution away from the target point. The needle was then removed. Sterile bandages were placed over the injection site. There were no apparent complications. The patient tolerated the procedure well and was carefully escorted to the recovery room in stable condition. The VAS was 9/10 before the procedure and 2/10 10 minutes after the procedure. After meeting discharge criteria, the patient was discharged home. By: [id number] Victor Manuel Edgar, /nt
[2021-06-05 10:16] VITALS: BP 142/79
--- NOTE | 2021-06-05 10:20 | NUR ---
Pain Clinic Assessment: 1. History of Osteoarthritis: SACRUM History of Rheumatoid Arthritis: Not Applicable 2. Height: 5 ft. 11 in. 180.3 cm. Weight: 189.0 lb. oz. 85.730 kg. Patient's BMI: 26.4 3. Vital Signs: BP: 142/79 Pulse: 89 Resp: 14 Temp: 02 Sat: 100 ECG Mon: 4. Pain Intensity: 9 5. Fall Risk: Dizziness: N Needs help standing or walking: N Fallen in the last 3 months: N Fall risk comments: 6. Patient on Blood Thinner: None 7. History of Hypertension: N 8. Opioid Therapy greater than 6 weeks: Y Opiate Contract Signed: 9. Risk Assessment Tool Provided: low-1 10. Functional Assessment Tool: 11. Recreational Drug Use: Never Drug Type: Tobacco Use: Never Smoker Tobacco Type: Amount or Packs/day: How Many Years: Alcohol Use: Yes Frequency: Quant:
== END | disposition home or self-care (01) ==
LOC: PAIN 06:52
PROVIDERS: ATTEND Anesthesiology Pain Medicine
DX: M47.817 Spondylosis without myelopathy or radiculopathy, lumbosacral region (principal); M47.816 Spondylosis without myelopathy or radiculopathy, lumbar region; G89.29 Other chronic pain; Z98.890 Other specified postprocedural states; Z79.899 Other long term (current) drug therapy; Z88.8 Allergy status to other drugs, medicaments and biological substances

== ENCOUNTER → 2021-06-19 | Outpatient (CLI) | payer BC, OTHER ==
[~2021-06-19] VITALS: Ht 180.3 cm; Wt 84.6 kg
[2021-06-19 09:16] VITALS: BP 134/77
--- NOTE | 2021-06-19 09:30 | NUR ---
Pain Clinic Assessment: 1. History of Osteoarthritis: SACRUM History of Rheumatoid Arthritis: Not Applicable 2. Height: 5 ft. 11 in. 180.3 cm. Weight: 186.6 lb. oz. 84.641 kg. Patient's BMI: 26.0 3. Vital Signs: BP: 134/77 Pulse: 91 Resp: 14 Temp: 02 Sat: 100 ECG Mon: 4. Pain Intensity: 10 5. Fall Risk: Dizziness: N Needs help standing or walking: N Fallen in the last 3 months: N Fall risk comments: 6. Patient on Blood Thinner: None 7. History of Hypertension: N 8. Opioid Therapy greater than 6 weeks: Y Opiate Contract Signed: 9. Risk Assessment Tool Provided: low-1 10. Functional Assessment Tool: 11. Recreational Drug Use: Never Drug Type: Tobacco Use: Never Smoker Tobacco Type: Amount or Packs/day: How Many Years: Alcohol Use: Yes Frequency: Quant:
--- NOTE | 2021-06-25 08:14 | HPC ---
[facility] [place] [address] PAIN MANAGEMENT CONSULTATION Name: KIMI MAYER Room #: REG [facility]ie De [facility] Cruz[facility]#: [id number] Admission: 06/19/21 Attend Phys: Victor Manuel Edgar DO Discharge: Date of : 75 Report #: [id number] THIS REPORT FOR: cc: Victor Manuel Miller,Victor Manuel Bryant DO ~ cc: Victor Manuel Miller DO DATE OF SERVICE: 06/19/2021 REFERRING PHYSICIAN: Dr. Victor Manuel Miller. CHIEF COMPLAINT: Axial back pain. HISTORY OF PRESENT ILLNESS: As you know, the patient is a very pleasant 46-year-old female, referred to our service to discuss interventional treatment options to address facet arthropathy of the lumbar spine. The patient has undergone medial branch blocks at our last visit, which provided improvement in symptoms of near 100%, lasting for approximately 4 hours with slow and progressive return of symptoms. The patient had difficulty undergoing the procedure due to anxiety and discomfort during the procedure. We made today's appointment for the patient to undergo medial branch blocks today as part of the staged procedure with the understanding that we would trial a low dose Versed. I did advise the patient if we are unable to maintain comfort during the procedure then we would recommend if radiofrequency lesioning was to be recommended that she do that completely under sedation, which we do not do at any of our clinics. The patient returns today to undergo second in the series of medial branch blocks in hopes of improving pain. ALLERGIES: DEMEROL. CURRENT MEDICATIONS: See chart. SOCIAL HISTORY: The patient denies tobacco, alcohol or IV or illicit drug use. She is accompanied by a family member present in the room today. IMAGING: No new imaging available. PHYSICAL EXAMINATION: VITAL SIGNS: Blood pressure 134/77, pulse 91, respiratory rate 14 and unlabored. The patient is 100% on room air. Current pain is rated at 10/10. GENERAL: Well-developed, well-nourished, well-hydrated 46-year-old female, appears stated age, no acute distress. HEENT: Normocephalic, atraumatic. She is wearing a mask in compliance with COVID-19 regulations. EXTREMITIES: No clubbing, no cyanosis, no edema. MUSCULOSKELETAL: Lower extremity strength remains symmetrical again today 5/5. She is once again wearing a brace on the right knee. No bracing on the ankle. [address] [address] PAIN MANAGEMENT CONSULTATION Name: KIMI MAYER Room #: REG [id number] Admission: 06/19/21 Attend Phys: Victor Manuel Edgar DO Discharge: Date of : 75 Report #: [id number] Seated straight leg raising negative. Supine straight leg raising negative. Lumbar provocation testing met with increased pain. ASSESSMENT: 1. Symptomatic lumbosacral spondylosis without radiculopathy. 2. Facet arthropathy of lumbar spine. 3. Chronic intractable pain. PLAN: 1. The patient returns today in followup visit, requesting to undergo bilateral L3, L4, L5 medial branch nerve blocks as part of the staged procedure moving towards radiofrequency lesioning. The patient reports near 100% improvement in overall pain lasting for almost 4 hours with the medial branch blocks done at the last appointment. The patient states that after the numbing medicine wore off, she felt as if her pain had intensified significantly. This would not be consistent with the process that was provided as nothing other than needle positions directly over the nerves were established and no damage was caused. We discussed with the patient today. I believe that she has perceptional increase in pain as she had results of improvement near 100% lasting for 4 hours and the perception is the return of symptoms is much greater though it is typically similar to previous. She returns today to undergo medial branch nerve blocks in hopes of improving pain. She had extreme difficulty with undergoing the first set of procedures, had difficulty maintaining position on the bed due to discomfort with the injections themselves. I did advise the patient we would provide her some Versed today for the procedure. I did advise her as well that if she could not tolerate the second in the series then we would not recommend moving forward with radiofrequency lesioning even if she sees excellent benefit as I do not feel she could tolerate the procedure without significant sedation and we do not offer that at our clinic. Patient understands, states she wants to trial the medial branch nerve blocks today in hopes of improving pain. 2. No medication changes made at today's visit. The patient will continue current medical therapy. 3. The patient did not tolerate the medial branch blocks well for the second procedure. She was quite emotionally labile. She had difficulty staying still on the bed, making it difficult for the operators to provide the injection. I would recommend that the patient if wanting to move forward with radiofrequency lesioning, possibly look towards facilities that do offer more sedation for the patient to tolerate the procedure better and to be able to facilitate the procedure process. We will be willing to discuss this again with the patient though I would not recommend moving forward with radiofrequency lesioning without some form of significant sedation. PROCEDURE NOTE: DESCRIPTION OF PROCEDURE: Bilateral L3, L4, L5 medial branch blocks under fluoroscopic guidance. [facility] [address] [place] [address] PAIN MANAGEMENT CONSULTATION Name: KIMI MAYER Room #: REG [facility]#: [id number] Admission: 06/19/21 Attend Phys: Victor Manuel Edgar DO Discharge: Date of : 75 Report #: [id number] This is the second of 2 diagnostic medial branch blocks on the right and left side that the patient is undergoing. After obtaining written consent, the patient was taken back to the fluoroscopy suite and placed in a prone position on the fluoroscopy table with a pillow under the abdomen to decrease the lumbar lordosis. The skin overlying the lumbosacral area was prepped and draped in an aseptic fashion. The L4 transverse process corresponding the L3 medial branch nerve and the L5 transverse process corresponding the L4 medial branch nerve on the right and left side was visualized under AP fluoroscopy. The skin and subcutaneous tissue overlying the target sites of injection were anesthetized using 2 mL of 1% lidocaine. A 22-gauge 3-1/2 inch spinal needle with a bent tip was advanced under fluoroscopic guidance using a superior to inferior and lateral to medial approach to the dorsal, superior and medial aspect of the base of the transverse processes. The needles were then directed ventral, medial and caudad to reach the target locations. An oblique view facilitated needle placement with properly positioned needles in the middle of the "eye" of the Jhon dog for the medial branch blocks. At each site the needles rested on periosteum. After negative aspiration for heme or CSF, 0.0 mL of Omnipaque dye was injected at each site under live fluoroscopy, demonstrating absence of vascular uptake. After negative aspiration for heme or CSF, 0.5 mL of bupivacaine 0.5% was slowly injected at each site to avoid forcing the solution away from the target points. The needles were then removed. The L5 dorsal ramus block on the right and left side was performed using a slightly oblique approach under fluoroscopic guidance, placing the needle within the groove between the sacral site and the superior articular process of S1. The needle rested on periosteum. After negative aspiration for heme or CSF, 0.0 mL of Omnipaque dye was injected at under live fluoroscopy, demonstrating absence of vascular uptake. After negative aspiration for heme or CSF, 0.5 mL of bupivacaine 0.5% was slowly injected to avoid forcing the solution away from the target point. The needle was then removed. Sterile bandages were placed over the injection site. There were no apparent complications. The patient tolerated the procedure well and was carefully escorted to the recovery room in stable condition. The VAS was 9/10 before the procedure and 1/10 minutes after the procedure. After meeting discharge criteria, the patient was discharged home. <ELECTRONICALLY SIGNED> By: Victor Manuel Edgar DO 06/25/21 0814 1212 0111 Victor Manuel Edgar DO /nt
== END | disposition home or self-care (01) ==
LOC: PAIN 06:58
PROVIDERS: ATTEND Anesthesiology Pain Medicine
DX: M47.817 Spondylosis without myelopathy or radiculopathy, lumbosacral region (principal); M47.816 Spondylosis without myelopathy or radiculopathy, lumbar region; G89.29 Other chronic pain; Z98.890 Other specified postprocedural states; Z79.899 Other long term (current) drug therapy; Z88.8 Allergy status to other drugs, medicaments and biological substances

== ENCOUNTER → 2021-06-26 | Outpatient (CLI) | payer BC, OTHER ==
[~2021-06-26] VITALS: Ht 180.3 cm; Wt 85.7 kg
[~2021-06-26] MED LIST changes: +HYDROCODON-ACE1 EAC5 PO
[2021-06-26 12:58] VITALS: BP 126/95
--- NOTE | 2021-06-26 13:08 | NUR ---
Pain Clinic Assessment: 1. History of Osteoarthritis: SACRUM History of Rheumatoid Arthritis: Not Applicable 2. Height: 5 ft. 11 in. 180.3 cm. Weight: 189.0 lb. oz. 85.730 kg. Patient's BMI: 26.4 3. Vital Signs: BP: 126/95 Pulse: 103 Resp: 16 Temp: 02 Sat: 97 ECG Mon: 4. Pain Intensity: 19 5. Fall Risk: Dizziness: N Needs help standing or walking: N Fallen in the last 3 months: N Fall risk comments: 6. Patient on Blood Thinner: None 7. History of Hypertension: N 8. Opioid Therapy greater than 6 weeks: Y Opiate Contract Signed: 9. Risk Assessment Tool Provided: low-1 10. Functional Assessment Tool: 11. Recreational Drug Use: Never Drug Type: Tobacco Use: Never Smoker Tobacco Type: Amount or Packs/day: How Many Years: Alcohol Use: Yes Frequency: Special Occasions Quant: 1
== END ==
LOC: PAIN 09:14
PROVIDERS: ATTEND Anesthesiology Pain Medicine
DX: M47.817 Spondylosis without myelopathy or radiculopathy, lumbosacral region (principal); M47.816 Spondylosis without myelopathy or radiculopathy, lumbar region; G89.29 Other chronic pain; M48.061 Spinal stenosis, lumbar region without neurogenic claudication; M48.07 Spinal stenosis, lumbosacral region; J45.909 Unspecified asthma, uncomplicated; G47.30 Sleep apnea, unspecified; G47.419 Narcolepsy without cataplexy; Z90.710 Acquired absence of both cervix and uterus; Z88.8 Allergy status to other drugs, medicaments and biological substances

== ENCOUNTER → 2021-08-02 | Outpatient (CLI) | payer BC, OTHER ==
[~2021-08-02] VITALS: Ht 180.3 cm; Wt 83.5 kg
[~2021-08-02] MED LIST changes: +ROXICODONE5 M2 PO
[2021-08-02 08:46] VITALS: BP 130/66
--- NOTE | 2021-08-02 08:50 | NUR ---
Pain Clinic Assessment: 1. History of Osteoarthritis: SACRUM History of Rheumatoid Arthritis: Not Applicable 2. Height: 5 ft. 11 in. 180.3 cm. Weight: 184.0 lb. oz. 83.462 kg. Patient's BMI: 25.7 3. Vital Signs: BP: 130/66 Pulse: 89 Resp: 16 Temp: 02 Sat: 97 ECG Mon: 4. Pain Intensity: 10 5. Fall Risk: Dizziness: N Needs help standing or walking: N Fallen in the last 3 months: Y Fall risk comments: 6. Patient on Blood Thinner: None 7. History of Hypertension: N 8. Opioid Therapy greater than 6 weeks: Y Opiate Contract Signed: 9. Risk Assessment Tool Provided: low-1 10. Functional Assessment Tool: 11. Recreational Drug Use: Never Drug Type: Tobacco Use: Never Smoker Tobacco Type: Amount or Packs/day: How Many Years: Alcohol Use: Yes Frequency: Special Occasions Quant: 1
== END ==
LOC: PAIN 06:55
PROVIDERS: ATTEND Anesthesiology Pain Medicine
DX: G89.29 Other chronic pain (principal); M47.817 Spondylosis without myelopathy or radiculopathy, lumbosacral region; M47.816 Spondylosis without myelopathy or radiculopathy, lumbar region; M79.604 Pain in right leg; M48.061 Spinal stenosis, lumbar region without neurogenic claudication; J45.909 Unspecified asthma, uncomplicated; G47.30 Sleep apnea, unspecified; G47.419 Narcolepsy without cataplexy; Z90.710 Acquired absence of both cervix and uterus; Z90.11 Acquired absence of right breast and nipple; Z88.8 Allergy status to other drugs, medicaments and biological substances; Z79.899 Other long term (current) drug therapy

== ENCOUNTER → 2021-09-04 | Outpatient (CLI) | payer BC, OTHER ==
[~2021-09-04] VITALS: Ht 180.3 cm; Wt 83.7 kg
[~2021-09-04] MED LIST changes: +METHADONE HCL 110 M1 PO
[2021-09-04 08:12] VITALS: BP 129/83
--- NOTE | 2021-09-04 08:30 | NUR ---
Pain Clinic Assessment: 1. History of Osteoarthritis: SACRUM History of Rheumatoid Arthritis: Not Applicable 2. Height: 5 ft. 11 in. 180.3 cm. Weight: 184.6 lb. oz. 83.734 kg. Patient's BMI: 25.8 3. Vital Signs: BP: 129/83 Pulse: 90 Resp: 14 Temp: 02 Sat: 100 ECG Mon: 4. Pain Intensity: 10 5. Fall Risk: Dizziness: N Needs help standing or walking: N Fallen in the last 3 months: Y Fall risk comments: 6. Patient on Blood Thinner: None 7. History of Hypertension: N 8. Opioid Therapy greater than 6 weeks: Y Opiate Contract Signed: 9. Risk Assessment Tool Provided: low-1 10. Functional Assessment Tool: 11. Recreational Drug Use: Never Drug Type: Tobacco Use: Never Smoker Tobacco Type: Amount or Packs/day: How Many Years: Alcohol Use: No Frequency: Quant:
== END ==
LOC: PAIN 08-30 06:50
PROVIDERS: ATTEND Anesthesiology Pain Medicine
DX: G89.29 Other chronic pain (principal); M47.816 Spondylosis without myelopathy or radiculopathy, lumbar region; J45.909 Unspecified asthma, uncomplicated; G47.30 Sleep apnea, unspecified; G47.419 Narcolepsy without cataplexy; Z88.8 Allergy status to other drugs, medicaments and biological substances; Z79.899 Other long term (current) drug therapy

== ENCOUNTER → 2021-09-18 | Outpatient (CLI) | payer BC, OTHER ==
[~2021-09-18] VITALS: Ht 180.3 cm; Wt 83.6 kg
[2021-09-18 10:11] VITALS: BP 112/66
--- NOTE | 2021-09-18 10:33 | NUR ---
Pain Clinic Assessment: 1. History of Osteoarthritis: SACRUM History of Rheumatoid Arthritis: Not Applicable 2. Height: 5 ft. 11 in. 180.3 cm. Weight: 184.2 lb. oz. 83.553 kg. Patient's BMI: 25.7 3. Vital Signs: BP: 112/66 Pulse: 90 Resp: 14 Temp: 02 Sat: 100 ECG Mon: 4. Pain Intensity: 9 TO 10 5. Fall Risk: Dizziness: N Needs help standing or walking: N Fallen in the last 3 months: N Fall risk comments: 6. Patient on Blood Thinner: None 7. History of Hypertension: N 8. Opioid Therapy greater than 6 weeks: Y Opiate Contract Signed: 9. Risk Assessment Tool Provided: low-1 10. Functional Assessment Tool: 11. Recreational Drug Use: Never Drug Type: Tobacco Use: Never Smoker Tobacco Type: Amount or Packs/day: How Many Years: Alcohol Use: No Frequency: Quant:
== END ==
LOC: PAIN 07:01
PROVIDERS: ATTEND Anesthesiology Pain Medicine
DX: G89.29 Other chronic pain (principal); M12.88 Other specific arthropathies, not elsewhere classified, other specified site; J45.909 Unspecified asthma, uncomplicated; G47.30 Sleep apnea, unspecified; N94.89 Other specified conditions associated with female genital organs and menstrual cycle; M54.50 Low back pain, unspecified; G47.419 Narcolepsy without cataplexy; Z88.8 Allergy status to other drugs, medicaments and biological substances; Z79.899 Other long term (current) drug therapy

== ENCOUNTER → 2021-10-11 | Outpatient (CLI) | payer BC, OTHER ==
[~2021-10-11] VITALS: Ht 180.3 cm; Wt 85.5 kg
[2021-10-11 09:06] VITALS: BP 128/79
--- NOTE | 2021-10-11 09:13 | NUR ---
Pain Clinic Assessment: 1. History of Osteoarthritis: SACRUM History of Rheumatoid Arthritis: Not Applicable 2. Height: 5 ft. 11 in. 180.3 cm. Weight: 188.6 lb. oz. 85.548 kg. Patient's BMI: 26.3 3. Vital Signs: BP: 128/79 Pulse: 111 Resp: 20 Temp: 02 Sat: 99 ECG Mon: 4. Pain Intensity: 9 TO 10 5. Fall Risk: Dizziness: N Needs help standing or walking: N Fallen in the last 3 months: N Fall risk comments: 6. Patient on Blood Thinner: None 7. History of Hypertension: N 8. Opioid Therapy greater than 6 weeks: Y Opiate Contract Signed: 9. Risk Assessment Tool Provided: low-1 10. Functional Assessment Tool: 11. Recreational Drug Use: Never Drug Type: Tobacco Use: Never Smoker Tobacco Type: Amount or Packs/day: How Many Years: Alcohol Use: No Frequency: Quant:
== END ==
LOC: PAIN 08:20
PROVIDERS: ATTEND Anesthesiology Pain Medicine
DX: M47.898 Other spondylosis, sacral and sacrococcygeal region (principal)

== ENCOUNTER → 2021-11-08 | Outpatient (CLI) | payer BC, OTHER ==
[~2021-11-08] VITALS: Ht 180.3 cm; Wt 82.6 kg
[~2021-11-08] MED LIST changes: +BUTRANS1 EACH INTRADERM
[2021-11-08 08:23] VITALS: BP 160/93
--- NOTE | 2021-11-08 08:29 | NUR ---
Pain Clinic Assessment: 1. History of Osteoarthritis: SACRUM History of Rheumatoid Arthritis: Not Applicable 2. Height: 5 ft. 11 in. 180.3 cm. Weight: 182.2 lb. oz. 82.645 kg. Patient's BMI: 25.4 3. Vital Signs: BP: 160/93 Pulse: 86 Resp: 16 Temp: 02 Sat: 100 ECG Mon: 4. Pain Intensity: 10 5. Fall Risk: Dizziness: N Needs help standing or walking: N Fallen in the last 3 months: N Fall risk comments: 6. Patient on Blood Thinner: None 7. History of Hypertension: N 8. Opioid Therapy greater than 6 weeks: Y Opiate Contract Signed: 9. Risk Assessment Tool Provided: low-1 10. Functional Assessment Tool: 11. Recreational Drug Use: Never Drug Type: Tobacco Use: Never Smoker Tobacco Type: Amount or Packs/day: How Many Years: Alcohol Use: No Frequency: Quant:
== END ==
LOC: PAIN 07:59
PROVIDERS: ATTEND Anesthesiology Pain Medicine
DX: G89.29 Other chronic pain (principal); M25.561 Pain in right knee; M54.50 Low back pain, unspecified; M25.571 Pain in right ankle and joints of right foot; M53.3 Sacrococcygeal disorders, not elsewhere classified; R10.2 Pelvic and perineal pain

== ENCOUNTER → 2021-11-22 | Outpatient (CLI) | payer BC, OTHER ==
[~2021-11-22] VITALS: Ht 180.3 cm; Wt 81.6 kg
[~2021-11-22] MED LIST changes: +BUTRANS1 EAC1 TRANSDERM
[2021-11-22 10:02] VITALS: BP 131/93
--- NOTE | 2021-11-22 10:05 | NUR ---
Pain Clinic Assessment: 1. History of Osteoarthritis: SACRUM History of Rheumatoid Arthritis: Not Applicable 2. Height: 5 ft. 11 in. 180.3 cm. Weight: 180.0 lb. oz. 81.648 kg. Patient's BMI: 25.1 3. Vital Signs: BP: 131/93 Pulse: 82 Resp: 20 Temp: 02 Sat: 100 ECG Mon: 4. Pain Intensity: 10 5. Fall Risk: Dizziness: N Needs help standing or walking: N Fallen in the last 3 months: N Fall risk comments: 6. Patient on Blood Thinner: None 7. History of Hypertension: N 8. Opioid Therapy greater than 6 weeks: Y Opiate Contract Signed: 9. Risk Assessment Tool Provided: low-1 10. Functional Assessment Tool: 11. Recreational Drug Use: Never Drug Type: Tobacco Use: Never Smoker Tobacco Type: Amount or Packs/day: How Many Years: Alcohol Use: No Frequency: Quant:
== END ==
LOC: PAIN 07:05
PROVIDERS: ATTEND Anesthesiology Pain Medicine
DX: G89.29 Other chronic pain (principal); M47.816 Spondylosis without myelopathy or radiculopathy, lumbar region; M48.061 Spinal stenosis, lumbar region without neurogenic claudication; J45.909 Unspecified asthma, uncomplicated; G47.30 Sleep apnea, unspecified; G47.419 Narcolepsy without cataplexy; Z88.8 Allergy status to other drugs, medicaments and biological substances; Z79.899 Other long term (current) drug therapy